=== PATIENT | male | born 1945 | race Two or more races ===

== ENCOUNTER 2017-07-29 07:00 | Day surgery (SDC) | payer OTHER ==
[~2017-07-29] VITALS: Ht 170.2 cm; Wt 86.2 kg
[~2017-07-29 07:00] MED LIST: ATENOLOL25 MG PO; ENALAPRIL MALEA20 MG PO; FINASTERIDE5 MG PO; FOLIC ACID1 MG PO; ISOSORBIDE DINI30 MG PO; LIPITOR20 MG PO; METFORMIN HCL850 MG PO; PEPCID20 MG PO; RAPAFLO8 MG PO; TAMS0.4C PO; ZYRTEC10 M3 PO
== END 2017-07-30 08:00 | disposition home or self-care (01) ==
LOC: CIR.AMB 07:00 → O/R 07:47 → SURG 07:47 → EDSTATUS 13:30 → SURG 13:30 → O/R 15:29 → SURH 15:29 → SURG 17:15 → CIR.AMB 07-30 08:00 → SURH 07-30 10:47
DX: C67.0 Malignant neoplasm of trigone of bladder (principal); N40.1 Benign prostatic hyperplasia with lower urinary tract symptoms; R33.8 Other retention of urine

== ENCOUNTER 2017-08-26 10:08 | Outpatient (CLI) | payer OTHER | END 2017-08-26 13:31 | disposition home or self-care (01) | LOC: NUCLEAR 10:08 | DX: C61 Malignant neoplasm of prostate (principal) | CPT/HCPCS: 78815; A9552 ==

== ENCOUNTER → 2018-04-04 | Outpatient (CLI) | payer OTHER | END | disposition home or self-care (01) | LOC: EDBD 08:30 → NUCLEAR 08:30 | DX: I65.29 Occlusion and stenosis of unspecified carotid artery (principal) | CPT/HCPCS: 78816; 93880; A9552 ==

== ENCOUNTER 2018-04-08 07:59 | Outpatient (CLI) | payer OTHER | END 2018-04-08 09:16 | disposition home or self-care (01) | LOC: NUCLEAR 07:59 → EDBD 07:59 → NUCLEAR 09:16 | DX: I25.10 Atherosclerotic heart disease of native coronary artery without angina pectoris (principal); N40.1 Benign prostatic hyperplasia with lower urinary tract symptoms; C67.9 Malignant neoplasm of bladder, unspecified | CPT/HCPCS: 78452; 93017; A9500; J0153 ==

== ENCOUNTER 2018-09-24 08:34 | Outpatient (CLI) | payer OTHER | END 2018-09-24 09:00 | disposition home or self-care (01) | LOC: NUCLEAR 08:34 | DX: C67.9 Malignant neoplasm of bladder, unspecified (principal); Z08 Encounter for follow-up examination after completed treatment for malignant neoplasm | CPT/HCPCS: 78816; A9552 ==

== ENCOUNTER 2022-10-27 23:51 | Emergency (ER) | payer OTHER ==
[~2022-10-27] VITALS: Ht 170.2 cm; Wt 72.6 kg
== END 2022-10-29 15:05 | disposition designated cancer center or children's hospital (05) ==
LOC: ER 23:51
DX: I61.9 Nontraumatic intracerebral hemorrhage, unspecified (principal); M79.662 Pain in left lower leg; I10 Essential (primary) hypertension; Z85.51 Personal history of malignant neoplasm of bladder; Z85.528 Personal history of other malignant neoplasm of kidney; C79.31 Secondary malignant neoplasm of brain; Z20.822 Contact with and (suspected) exposure to COVID-19